=== PATIENT | male | born 1950 | race Caucasian/White ===

== ENCOUNTER 2021-05-07 21:19 | Emergency (ER) | payer MEDICARE, OTHER ==
--- NOTE | 2021-05-07 22:21 | EDM.PDOC ---
ED HPI GENERAL MEDICAL PROBLEM - General Chief Complaint: Neurological Problem Stated Complaint: POSSIBLE STROKE Time Seen by Provider: 05/07/21 21:21 Source of Information: Reports: Patient, RN Notes Reviewed History Limitations: Reports: No Limitations - History of Present Illness INITIAL COMMENTS - FREE TEXT/NARRATIVE: 71-year-old gentleman presents emergency department today with concerns about strokelike symptoms. Approximately 10 days prior family members had noticed that he was not as sharp as usual and had difficulty with his speech. Family is a purification and became concerned and thought they should come to the emergency department to have it checked out. He has no complaints at this time family does not believe he is having difficulty with his speech now. - Related Data Allergies Allergy/AdvReac Type Severity Reaction Status Date / Time No Known Allergies Allergy Verified 05/07/21 21:46 Home Meds: Home Meds metFORMIN [Glucophage] 1 tab PO DAILY 05/07/21 [History] Past Medical History HEENT History: Reports: Impaired Vision, Sinusitis Musculoskeletal History: Reports: Back Pain, Chronic, Fracture Endocrine/Metabolic History: Reports: Other (See Below) Other Endocrine/Metabolic History: prediabetic - Infectious Disease History Infectious Disease History: Reports: Chicken Pox - Past Surgical History HEENT Surgical History: Reports: Eye Surgery Other HEENT Surgeries/Procedures: eyelid surgery GI Surgical History: Reports: Hernia, Inguinal Neurological Surgical History: Reports: Lumbar Spine Social & Family History - Tobacco Use Tobacco Use Status *Q: Never Tobacco User - Caffeine Use Caffeine Use: Reports: Coffee Caffeine Use Comment: "lots of coffee" 15-20 cups per day - Alcohol Use Days Per Week of Alcohol Use: 4 Number of Drinks Per Day: 1 Total Drinks Per Week: 4 - Recreational Drug Use Recreational Drug Use: No ED ROS GENERAL - Review of Systems Review Of Systems: See Below Constitutional: Reports: No Symptoms HEENT: Reports: No Symptoms Respiratory: Reports: No Symptoms Cardiovascular: Reports: No Symptoms GI/Abdominal: Reports: No Symptoms Neurological: Reports: No Symptoms Psychiatric: Reports: No Symptoms ED EXAM, NEURO - Physical Exam Exam: See Below Text/Narrative:: Cranial nerves II test with pupillary light reflex 4 mm to 3 mm bilaterally, CN III test pupillary constriction, lid elevation and eye abduction bilaterally, CN IV downward movement of eyes bilaterally, CN V good jaw movement, CN lateral deviation of the eyes bilaterally to finger movement, CN VII symmetrical smile shows teeth without difficulty, CN VIII pass finger rub to ears bilaterally, CN IX adequate voice and tone, CN X adequate voice and tone no difficulty swallowing, CN XI can shrug shoulders without difficulty, CN XII can stick tongue out without difficulty, cranial nerves II to XII intact as tested, power is 5 out 5 in upper and lower extremities, patellar reflex, biceps reflex +2 can do finger to nose without difficulty, no dysdiadochokinesis, no difficulty with rapid alternating movements can do [id number] without difficulty, Romberg is negative, has adequate gait can do heel to toe, can toe walk and heel walk no cerebellar dysfunction y, no focal neurologic deficit Perfect score on AMT-10 mental status evaluation Exam Limited By: No Limitations General Appearance: Alert, WD/WN, No Apparent Distress Head Exam: Normocephalic Neurological: Alert, Normal Mood/Affect, CN II-XII Intact, Normal Gait, No Motor/Sensory Deficits, Oriented x 3 Course - Vital Signs Last Recorded V/S: Last Vital Signs Temp 98 F 05/07/21 22:04 Pulse 63 05/07/21 22:04 Resp 16 05/07/21 22:04 BP 149/87 H 05/07/21 22:04 Pulse Ox 95 05/07/21 22:04 Departure - Departure Time of Disposition: 22:20 Disposition: Home, Self-Care 01 Condition: Good Clinical Impression: Mental status at baseline - Discharge Information Referrals: PCP,None [Primary Care Provider] - Additional Instructions: Please follow-up with your primary care upon return home for further evaluation Sepsis Event Note (ED) - Evaluation Sepsis Screening Result: No Definite Risk - Focused Exam Vital Signs: Vital Signs Temp Pulse Resp BP Pulse Ox 05/07/21 22:04 98 F 63 16 149/87 H 95 05/07/21 21:44 98 F 63 16 149/87 H 95 - Assessment/Plan Plan: Assessment Acuity = acute Site and laterality = normal mental status Etiology = unknown Manifestations = none Location of injury = Home Lab values = none Plan Did talk to him about lab work and image studies however they declined however they declined will Follow-up with your primary care for further evaluation This note was dictated using [employer] voice recognition software please call with any questions on syntax or grammar.
== END 2021-05-07 23:01 | disposition home or self-care (01) ==
LOC: JP.ED 21:19
DX: R41.82 Altered mental status, unspecified (principal)
CPT/HCPCS: 99282